=== PATIENT | male | born 1950 | race Caucasian/White ===

== ENCOUNTER 2024-11-28 01:07 | Emergency (ER) | payer MEDICARE, SELFPAY ==
[2024-11-28 01:09] VITALS: BP 136/90
--- NOTE | 2024-11-28 01:16 | ED.GENMED ---
History of Present Illness
General
Chief Complaint: Abdominal Pain
Time Seen by Provider: 11/28/24 01:16
History of Present Illness
History of Present Illness:
TIME OF INITIAL ENCOUNTER: 1:20 AM
HPI: The patient presents with 48 hours of pain mostly in the right upper quadrant that radiates into the back. He tried an [id number]-[id number] regular strength Tylenol without much improvement. He does not have any pain into the chest and denies
shortness of breath. He had PE in the past treated with Lovenox and now he is on Coumadin. He has had an appendectomy in the past. The patient states that he had a CAT scan at [place] about 3 weeks ago which was reportedly unremarkable.
EXAM:
GENERAL: Well appearing in no distress however at times he appears to have spasms of appearing uncomfortable
HEENT: Moist oral mucosa
CARDIOVASCULAR: No murmurs, normal heart rate, regular rhythm, No chest wall tenderness
PULMONARY: No respiratory distress, breath sounds are clear and equal
ABDOMEN: Soft with no peritoneal signs, questionable consistent tenderness in the right upper quadrant, no CVA tenderness
NEUROLOGIC: Excellent strength all extremities, no coordination deficits
PSYCHIATRIC: Appropriate mental status, normal insight and judgement
EXTREMITIES: Nontender, no edema, moves all extremities equally
SKIN: No rash, no lesions
NUMBER AND COMPLEXITY OF PROBLEMS ADDRESSED AT THE ENCOUNTER
� Chronic conditions affecting care: Factor V Leiden, PE on Coumadin, high blood pressure
� Acute Exacerbation and/or Progression of Chronic Illness: This is an acute problem
� Differential Diagnosis includes: Biliary colic, cholecystitis, abdominal muscular etiology, GERD/gastritis
AMOUNT AND/OR COMPLEXITY OF DATA TO BE REVIEWED AND ANALYZED
� I performed an independent evaluation of and my interpretation is:
EKG: Sinus 64, no acute ST abnormality, no change from 03/31/2018
CT:
X-rays:
Laboratory Studies: White count 8.1, hemoglobin normal, INR 1.8, chemistries unremarkable including LFTs and lipase, urinalysis negative
Other: [facility] report indicates CAT scan shows a hiatal hernia but otherwise unremarkable and ultrasound is reportedly unremarkable
� Review of other/old records: The patient was seen here with chest pain in 2018. The patient had a CTA of the chest that was negative for PE after treatment on Xarelto
� Clinical information was obtained by an independent historian: I spoke to at bedside
� Prescriptions/Medications Considered but not given:
� Further testing considered but not performed:
RISK OF COMPLICATIONS AND/OR MORBIDITY OR MORTALITY OF PATIENT MANAGEMENT
� Social determinants of health affecting care: Lives at home
� Discussion with other providers:
� Escalation of care including admission/observation vs risk of discharge considered: The patient reports having a unremarkable CT at [place] 3 weeks ago also with abdominal pain but he states that this pain feels different. He
has pain primarily on the right side that goes into his back. CT imaging without contrast was obtained to evaluate for stone. He states he has had an appendectomy in the past. He also localizes pain to the right upper quadrant. Although he does
not have particularly significant right upper quadrant pain, will obtain ultrasound imaging of the upper abdomen for further evaluation of the gallbladder. The patient intermittently appears to have spasms of pain but for the most part appears
fairly comfortable.
ANY OTHER UPDATES:
On reassessment at 3 AM, the patient appears comfortable. More strongly suspect musculoskeletal etiology. He will resume PPI. We gave a one-time dose of Toradol. Although patient is over the age of 65, he prefers to try Flexeril�will give
low-dose.
Past History
Past History
ED Past Medical History: HTN, Hypothyroidism and Other
ED Past Surgical History: Appendectomy
Social History
Tobacco: Non-smoker
Alcohol: Occasional
Personal:
Living: with family
Employment: Retired
Phy Exam
Physical Exam
Physical Exam:
See HPI
Course
Orders/Labs/Results
Orders:
Orders
11/28/24 01:16
US Abdomen Complete/Upper Urgent
Comment:
Reason For Exam: ruq pain
11/28/24 01:21
CT Abd/pel Without Iv Or Oral Urgent
Comment:
Reason For Exam: R flank / RUQ pain; had appendectomy
11/28/24 01:25
Electrocardiogram (*1) Urgent
Reason for Study: Chest Pain
EKG- Treatment ONCE
11/28/24 01:37
Comprehensive Metabolic Panel Urgent
Direct Bilirubin Urgent
Lipase Urgent
Urinalysis Reflex To Culture Urgent
Date Specimen was Collected: 11/28/24
Time Specimen was Collected: 01:35
11/28/24 01:38
Complete Blood Count/With Diff Urgent
Prothrombin Time Urgent
11/28/24 02:05
Ketorolac [Toradol] 15 mg IV NOW STA
11/28/24 02:55
Cyclobenzaprine HCl [Flexeril] 5 mg PO NOW STA
Abnormal Lab Results
11/28/24 11/28/24
01:37 01:38
MCH 31.3 H pg
(27.0-31.0)
MPV 10.6 H fL
(7.4-10.4)
Absolute Monos (auto) 1.2 H 10^3/uL
(0.1-0.6)
Monocytes % 14.2 H %
(1.7-9.3)
PT 21.4 H Sec
(11.4-14.6)
Glucose 104 H mg/dl
(70-99)
11/28/24 01:38
11/28/24 01:37
Vital Signs
Initial and Last Documented VS:
Initial Vital Signs
Temp Pulse Resp BP Pulse Ox
36.5 C 66 22 136/90 100
11/28/24 01:09 11/28/24 01:09 11/28/24 01:09 11/28/24 01:09 11/28/24 01:09
Last Documented Vital Signs
Temp Pulse Resp BP Pulse Ox
36.5 C 60 15 123/90 98
11/28/24 01:09 11/28/24 02:45 11/28/24 02:33 11/28/24 02:42 11/28/24 02:45
*Critical Care Note
Total Time (30-74mins, 75-104mins- exclusive of procedures): Not Applicable
ED Attending Note
-
Portions of this chart may have been created with voice recognition software.� Occasional wrong word or��sound alike� substitutions may have occurred due to the inherent limitations of voice recognition software.
Discharge Plan
Departure
Patient Disposition: Home (Routine Discharge)
Date of Disposition: 11/28/24
Time of Disposition: 02:54
Patient with high blood pressure during this ER visit?: Yes
Discharge Problem:
Abdominal pain
Instructions: Abdominal Pain, BLOOD PRESSURE
Prescriptions:
New
cyclobenzaprine 10 mg tablet
10 mg PO TID PRN (Reason: pain) Qty: 15 0RF
cyclobenzaprine 5 mg tablet
5 mg PO BID PRN (Reason: pain) Qty: 16 0RF
No Action
levothyroxine 50 MCG tablet
137 mcg PO DAILY
multivitamin [Daily Multiple] 1 EACH tablet
1 ea PO DAILY
famotidine [Pepcid AC] 20 MG tablet
20 mg PO PRN PRN (Reason: reflux)
amlodipine-benazepril [Lotrel] 5-10 mg Capsule
1 cap PO DAILY
warfarin 5 mg Tablet
5 mg PO .6PM
Referrals:
Criselda Sánchez MD [Family Provider] -
Activity Restrictions/Additional Instructions:
The cause of your symptoms is unclear but could be related to musculoskeletal etiology. We gave a one-time dose of Toradol. I recommend against any further NSAIDs as you are on Coumadin. Your INR is slightly low at 1.8. Urinalysis is normal.
Other work is normal. CAT scan shows a hiatal hernia but otherwise is unremarkable and shows no clear cause of your pain. Ultrasound imaging shows no gallstones or any other cause for your pain. Generally, it is not recommended to use Flexeril at
over the age of 65, however at your request, I am sending a prescription for Flexeril to your pharmacy but will be using a low-dose. Return here if worse or other concerns.
Interventions
Interventions:
*Risk Screen - Suicide Last Done: 11/28/24 01:09
*General Assessment Last Done: 11/28/24 01:18
*Neglect/Abuse Screening Last Done: 11/28/24 01:09
*ED- Fall Risk Assessment Last Done: 11/28/24 01:18
*ED COVID-19 Vaccine History Last Done: 11/28/24 01:18
AE-Njnplt-Kfdbybbzmq Assessment Last Done: 11/28/24 01:18
Discharge Date and Time
Print Language: [id number]
[2024-11-28 01:18] VITALS: BMI 31.9
[2024-11-28 01:49] LABS: Urine Albumin Negative (Neg - Trace); Urine Bilirubin Negative (Negative); Urine Character Clear (Clear); Urine Color Yellow; Urine Glucose Negative (Negative); Urine Ketone Negative (Negative); Urine Leukocyte Negative (Negative); Urine Nitrite Negative (Negative); Urine Occult Blood Negative (Negative); Urine Urobilinogen Negative (Neg - 1+)
[2024-11-28 01:50] LABS: % Basophils 1.6 % (0-2); % Eosinophils 3.4 % (0-6); % Immature Granulocytes 0.2 % (0-0.5); % Lymphocytes 34.6 % (20.5-51.1); % Monocytes 14.2 % (1.7-9.3); Absolute Basophils 0.1 10^3/uL (0-0.2); Absolute Eosinophils 0.3 10^3/uL (0-0.7); Absolute Lymphocytes 2.8 10^3/uL (1.2-3.4); Absolute Monocytes 1.2 10^3/uL (0.1-0.6); Absolute Neutrophils 3.7 10^3/uL (1.4-6.5); Hematocrit 43.2 % (39.0-52.0); Hemoglobin 15.3 g/dL (13.0-18.0); Mean Corp Hgb Conc. 35.4 g/dL (33.0-37.0); Mean Corpuscular Hgb 31.3 pg (27.0-31.0); Mean Corpuscular Volume 88.3 fL (80.0-94.0); Mean Platelet Volume 10.6 fL (7.4-10.4); Nucleated Red Blood Cells % 0 % (-); Platelet Count 239 10^3/uL (130-400); Red Blood Cell Count 4.89 10^6/uL (4.70-6.10); Red Cell Dist. Width 13.3 % (11.5-14.5); White Blood Cell Count 8.1 10^3/uL (4.8-10.8)
[2024-11-28 02:00] LABS: INR 1.83; PT 21.4 Sec (11.4-14.6)
[2024-11-28 02:02] LABS: ALT (SGPT) 20 U/L (0-50); AST (SGOT) 23 U/L (17-59); Albumin 3.9 g/dl (3.5-5.0); Alkaline Phosphatase 71 U/L (38-126); Blood Urea Nitrogen 18 mg/dl (9-20); Calcium 9.5 mg/dl (8.4-10.2); Carbon Dioxide 24 mmol/L (22-30); Chloride 107 mmol/L (98-107); Direct Bilirubin 0.1 mg/dl (0.0-0.4); Estimated Creatinine Clearance 88 ml/min; Glucose 104 mg/dl (70-99); Lipase 104 U/L (23-300); Potassium 4.3 mmol/L (3.5-5.1); Sodium 137 mmol/L (135-145); Total Bilirubin 0.6 mg/dl (0.2-1.3); Total Protein 6.5 g/dl (6.3-8.2); eGFR > 60.00
[2024-11-28 02:07] VITALS: BP 137/103
[2024-11-28 02:42] VITALS: BP 123/90
[2024-11-28] MEDS: TORADOL 15 MG IV (02:44)
[2024-11-28] MEDS: FLEXERIL 5 MG PO (03:09)
== END 2024-11-28 03:10 | disposition home or self-care (01) ==
LOC: EMR 01:07
PROVIDERS: EMERGENCY PHYSICIAN Emergency Medicine; FAMILY PHYSICIAN Student in an Organized Health Care Education/Training Program
DX: R10.11 Right upper quadrant pain (principal); Z86.711 Personal history of pulmonary embolism; Z79.01 Long term (current) use of anticoagulants; E03.9 Hypothyroidism, unspecified; I10 Essential (primary) hypertension; Z90.49 Acquired absence of other specified parts of digestive tract
CPT/HCPCS: 96374; 99284; 74176; 76700; 80053; 81003; 82248; 83690; 85025; 85610; 93005

== ENCOUNTER → 2025-06-03 08:37 | Outpatient (REF) | payer MEDICARE, SELFPAY | LOC: RAD 08:37 | PROVIDERS: ATTENDING PHYSICIAN Internal Medicine Gastroenterology; FAMILY PHYSICIAN Student in an Organized Health Care Education/Training Program | DX: R10.13 Epigastric pain (principal) | CPT/HCPCS: 74246; 74248 ==